=== PATIENT | male | born 1940 | race Caucasian/White ===

== ENCOUNTER 2017-01-20 11:42 | Emergency (ER) | payer MEDICARE ==
[~2017-01-20] VITALS: Ht 175.3 cm; Wt 102.3 kg
[~2017-01-20 11:42] MED LIST: NAPR500T PO; ZOV800 PO
[2017-01-20 11:47] VITALS: BP 116/67; PULSE 72; RESP 16; O2SAT 95
[2017-01-20 12:17] LABS: BASOPHILS % (AUTO) 0.1 % (0-3); EOSINOPHILS % (AUTO) 1.2 % (0-5); MONOCYTES % (AUTO) 8.5 % (4-12); Mean Corpuscular Hemoglobin 29.7 pg (27.0-35.0); Mean Corpuscular Volume 89.3 fL (81-100); NEUTROPHILS % (AUTO) 70.1 % (40-74); Platelet Count 125 bil/L (150-400)
[2017-01-20 12:40] LABS: Magnesium 1.9 mg/dL (1.6-2.6)
--- NOTE | 2017-01-20 12:49 | ED.REPORT ---
HPI-Abd Pain M 40 and Over Date of Service Jan 20, 2017 ED Provider: Quita Walker MD The patient is a 76 year old male with history of diabetes mellitus, hypertension, hyperlipidemia, coronary artery disease s/p CABG, and abdominal aortic aneurysm s/p repair, who presents to the emergency department complaining of LLQ abdominal pain that began yesterday. His pain has been constant since onset. His pain is currently at a 7/10 and at most severe it has been 10/10. His pain is exacerbated with walking, movement, and change in position. He denies nausea, vomiting, diarrhea, dysuria, hematuria, urinary symptoms, fever or chills. He denies history of kidney stones. Nursing Notes Stated Complaint: ABDOMINAL PAIN Chief Complaint: Male Abdominal Pain Nursing Notes Reviewed: Yes Allergies: Coded Allergies: codeine (Verified Adverse Reaction, Intermediate, "MAKES ME CRAZY.", ) Uncoded Allergies: seafood (Allergy, Severe, Hives, 07/14/05) Scheduled Acyclovir (Acyclovir) 800 Mg Tab 800 MG PO 5XD Levofloxacin (Levaquin) 750 Mg Tablet 750 MG PO DAILY Metronidazole (Flagyl ER) 750 Mg Tablet.er 750 MG PO Q8H Scheduled PRN Docusate Sodium (Colace) 100 Mg Capsule 100 MG PO BID PRN PRN For Constipation Hydrocodone-Acetaminophen 5-325 mg (Hydrocodone-Acetaminophen 5-325 mg) 1 Each Tablet 1 TABLET PO Q4H PRN PRN For Pain Naproxen (Naprosyn) 500 Mg Tablet 500 MG PO BID PRN PRN For Pain Polyethylene Glycol 3350 (Miralax) 17 Gm Powd.pack 17 GM PO BID PRN PRN For Constipation General Time Seen by MD: 12:48 Chief Complaint Abdominal pain Hx Obtained From: Patient, Other family... Arrived By: Walk-in Sudden in Onset?: Yes Onset Occurred: Yesterday Symptom Duration: Since onset Progression since Onset: Constant Location: : LLQ Quality: Painful Severity: Current: Moderate Severity: Maximum: Severe Recent Healthcare: No recent doctor visit, No recent hospitalization Similar Sx Previous: No Past Medical History Past Medical History Hx of DC AAA s/p repair Reports: Diabetes mellitus, Hyperlipidemia, Hypertension Past Surgical History Back surgery AAA repair Reports: CABG Family History Brother has stage 4 lung cancer Smoking History Former Smoker Social History Alcohol Use: Denies alcohol use Drug Use: Denies drug use Other Social History: Lives alone, Local resident Ambulatory Status Independent Review of Systems Constitutional: Denies: Chills, Fever GI: Reports: Abdominal pain, Denies: Diarrhea, Nausea, Vomiting Male: Denies Dysuria, Denies Hematuria, Denies Urinary frequency, Denies Urinary urgency, Denies Urination decreased, Denies Urination increased Complete sys rev & neg: except as marked. Physical Exam Initial Vital Signs Vital Signs (First) Date Time Temp Pulse Resp B/P Pulse Ox O2 Delivery O2 Flow Rate FiO2 01/20/17 11:47 36.1 72 16 116/67 95 Room Air Initial VS: Reviewed, Vital signs normal Head / Eyes: Atraumatic, Normocephalic, PERRL ENT: Mucous membranes moist, Conjunctiva normal, No scleral icterus Neck: Supple, Non-tender, Full range of motion Lymphatic: No lymphadenopathy Extremities: Vascular intact, Neuro intact, No swelling, No tenderness Skin: Warm, Dry, No cyanosis Neurologic: Alert, Oriented, Nonfocal Psychiatric: Mood/affect normal, Behavior normal, Normal thought content General/Constitutional: Awake, Alert, No acute distress, Cooperative Respiratory / Chest: Atraumatic, Breath sounds NL, Breath sounds = bilat, No respiratory distress, No rales, No rhonchi, No wheezing Cardiovascular: Heart rate NL, Regular rhythm, Heart sounds NL, No murmurs, No rubs, Peripheral circulation NL Abdomen: Soft, BS normoactive, No distention Tenderness/Guarding/Rebound: Positive: Tender epigastric Epigastric, LUQ, LLQ, and mid quadrant tenderness with guarding. Interpretation & Diagnostics Lab Results Interpretation Result Diagram: 01/20/17 1214 01/20/17 1214 Test 01/20/17 12:14 White Blood Count 10.1th/mm3 (3.8-10.1) Red Blood Count 5.12mil/mm3 (4.40-5.80) Hemoglobin 15.2g/dL (13.8-17.2) Hematocrit 45.7% (41.0-50.0) Mean Corpuscular Volume 89.3fL (81-100) Mean Corpuscular Hemoglobin 29.7pg (27.0-35.0) Mean Corpuscular Hemoglobin Concent 33.3% (32.0-37.0) Red Cell Distribution Width 12.7% (12.3-15.4) Platelet Count 125bil/L (150-400) Neutrophils (%) (Auto) 70.1% (40-74) Lymphocytes (%) (Auto) 20.0% (14-46) Monocytes (%) (Auto) 8.5% (4-12) Eosinophils (%) (Auto) 1.2% (0-5) Basophils (%) (Auto) 0.1% (0-3) Sodium Level 136mEq/L (134-144) Potassium Level 4.6mEq/L (3.5-5.2) Chloride Level 99mEq/L (97-108) Carbon Dioxide Level 23mmol/L (18-29) Blood Urea Nitrogen 10mg/dL (8-27) Creatinine 0.98mg/dL (0.76-1.27) Estimat Glomerular Filtration Rate 79mL/min (>59) Glucose Level 132mg/dL (60-99) Calcium Level 9.0mg/dL (8.5-10.1) Magnesium Level 1.9mg/dL (1.6-2.6) Total Bilirubin 0.6mg/dL (0.0-1.2) Aspartate Amino Transf (AST/SGOT) 18U/L (0-50) Alanine Aminotransferase (ALT/SGPT) 10U/L (0-44) Alkaline Phosphatase 65U/L (25-160) Total Protein 7.7g/dL (6.4-8.4) Albumin 3.9g/dL (3.4-5.0) Lipase 37U/L (13-60) CT Abd / Pelvis Interpretation IMPRESSION: 1. Distal transverse/proximal descending colonic thickening with pericolonic inflammation consistent with colitis. Given presence of diverticula, findings are most consistent with diverticulitis. No peridiverticular abscess. 2. Interval aortoiliac stent placement with stable aneurysmal dilation. Dictated by: Lary Chandra M.D. on 01/20/2017 at 14:36 Interpretation / Wet Read by: Interpret - Radiologist Re-Eval/Medical Decision Med Decision/Clinical Course The patient presents with left-sided abdominal pain with guarding, his CT shows diverticulitis with inflammation and no other complications such perforation or abscess. The patient was started on antibiotics here in the emergency department and can continue as an outpatient. The patient does not wish to be admitted and is leery about pain medication but is willing to try. Differential diagnoses considered were colitis, diverticulitis, perforation, colonic mass, obstruction, gastroenteritis, and ischemia. Source of Hx: Old records, Family Time of Eval: 14:55 Re-Evaluation/Progress Note: Rechecked the patient. Discussed results, diagnosis, and plan for discharge. All quesitons were addressed. Counseled Regarding: Diagnosis, Lab results, Need for follow-up, When/why to return to ED Discharge & Departure Primary Impression: Diverticulitis Diverticulitis site: unspecified part of intestinal tract Diverticulitis bleeding: without bleeding Diverticulitis complication: without perforation or abscess Qualified Code: K57.92 - Diverticulitis of intestine, part unspecified, without perforation or abscess without bleeding Disposition: Home Vital Signs - All Vital Signs Date Time Temp Pulse Resp B/P Pulse Ox O2 Delivery O2 Flow Rate FiO2 01/20/17 11:47 36.1 72 16 116/67 95 Room Air )( All Prior VS Reviewed: Yes Condition: Stable Patient Instructions: Diverticulitis (ED) Additional Instructions: Thank you for entrusting us with your care today. Your CT does show evidence of diverticulitis. Please take the antibiotics as prescribed. Don't drink alcohol while taking the Flagyl. Followup with your regular doctor in 1 week for re- evaluation. Take Metamucil and Colace while taking the pain medication. If you do not have bowel movement or if you feel like you are getting constipated then take the Miralax for a few days. Seek care for any new or concerning symptoms. Referrals: Cortez Edwards MD (PCP) [place] Attestation Portions of this note were transcribed by Kaela Russell. I, Dr. Walker personally performed the history, physical exam and medical decision-making; I reviewed and confirmed the accuracy of the information in the transcribed note. Signed by: Carmita Easton, 01/20/2017 at 1502. copies to: Cortez Edwards MD, Jena M MD Jan 20, 2017 12:49 Kaela Russell Jan 20, 2017 12:51
[2017-01-20] MEDS ORDERED: HYDROmorphone 0.5 mg/0.5 mL iSecure Syringe IVPUSH ONE (13:25)
[2017-01-20] MEDS ORDERED: 0.9% Sodium Chloride 500 ML IV ONE (13:25)
--- NOTE | 2017-01-20 14:48 | DRSVH ---
PROCEDURE: CT ABDOMEN AND PELVIS WITH CONTRAST ([id number]) INDICATIONS: left side pain with guarding TECHNIQUE: After the administration of intravenous contrast, 5 mm thick sections acquired from the diaphragm to the symphysis. 5 mm coronal and sagittal reformats were acquired. For radiation dose reduction, the following was used: automated exposure control, adjustment of mA and/or kV according to patient brayan jackman. COMPARISON: [facility], CT, CT ANGIO CHEST ABD, 09/29/2015, 15:50. FINDINGS: Image quality: Excellent. ABDOMEN: Lung bases: Mild dependent changes are present within the right base. Solid organs: Liver and spleen are normal in size and enhancement. Gallbladder is unremarkable. Bi liary system is non dilated. Pancreas enhances normally. No adrenal nodules. Kidneys demonstrate n ormal size and enhancement, without hydronephrosis. Peritoneum and bowel: Bowel loops demonstrate normal wall thickness and caliber. No free fluid or a ir. Moderate diverticula are present. There is colonic thickening and inflammatory change within the left lower quadrant within the distal transverse extending into these descending colon. There is no focal fluid collection or free air. Nodes and vessels: No retroperitoneal or mesenteric adenopathy by size criteria. There has been int erval placement of distal aortoiliac stent. Aneurysmal dilation is unchanged at 5.1 cm transverse. Miscellaneous: No ventral hernias. PELVIS: Genitourinary: Bladder wall thickness is normal. Miscellaneous: No inguinal hernias or adenopathy. Bones: No suspicious bony lesions. No vertebral body compression fractures. IMPRESSION: 1. Distal transverse/proximal descending colonic thickening with pericolonic inflammation consistent with colitis. Given presence of diverticula, findings are most consistent with diverticulitis. No p eridiverticular abscess. 2. Interval aortoiliac stent placement with stable aneurysmal dilation. Dictated by: Lary Chandra M.D. on 01/20/2017 at 14:36 Approved by: Lary Chandra M.D. on 01/20/2017 at 14:46
[2017-01-20] MEDS ORDERED: levoFLOXacin Inj 750 MG in IV Premix 1 EACH IV ONE (15:00)
[2017-01-20] MEDS ORDERED: metroNIDAZOLE Inj 500 MG in IV Premix 1 EACH IV ONE (15:00)
[2017-01-20] MEDS ORDERED: DOCU-41 PO (15:02)
[2017-01-20] MEDS ORDERED: POLY17PO6 PO (15:02)
[2017-01-20] MEDS ORDERED: METR750T PO (15:02)
[2017-01-20] MEDS ORDERED: LEVO750T9 PO (15:02)
[2017-01-20] MEDS ORDERED: HYDR-4003 PO (15:02)
[2017-01-20] MEDS ORDERED: levoFLOXacin 750 mg Tablet PO ONE (15:35)
[2017-01-20 16:19] VITALS: BP 118/70; PULSE 77; RESP 16; O2SAT 96
== END 2017-01-20 16:23 | disposition home or self-care (01) ==
LOC: SED 11:42
DX: K57.92 Diverticulitis of intestine, part unspecified, without perforation or abscess without bleeding (principal); E11.9 Type 2 diabetes mellitus without complications; I10 Essential (primary) hypertension; E78.5 Hyperlipidemia, unspecified; I25.2 Old myocardial infarction; Z87.891 Personal history of nicotine dependence; Z95.1 Presence of aortocoronary bypass graft; Z86.79 Personal history of other diseases of the circulatory system; Z88.5 Allergy status to narcotic agent
CPT/HCPCS: 36415; 74177; 80053; 83690; 83735; 85025; 96361; 96365; 96375; 99285; J1170; J3490; J7040; Q9967